=== PATIENT | male | born 1940 | race Caucasian/White ===

== ENCOUNTER 2022-05-13 15:36 | Emergency (ER) | payer OTHER ==
--- NOTE | 2022-05-13 17:25 | RAD REPORT ---
EXAM DESCRIPTION: RAD - Chest Single View - 05/13/2022 5:14 pm CLINICAL HISTORY: COUGH, congestion, shortness of breath, abnormal EKG COMPARISON: Two view chest 12/30/2019 TECHNIQUE: AP portable chest image was obtained 05/13/2022 5:14 pm . FINDINGS: Lung volumes are decreased compared to the prior study. This accentuates an existing inter stitial fibrotic lung pattern. No consolidation or mass seen. A mild interstitial edema or infiltrate could be masked. No hilar abnormality compared to prior imaging. Heart and vasculature are normal. No measurable pleur al effusion and no pneumothorax. No acute bony abnormality seen. No acute aortic findings suspected. IMPRESSION: Chronic interstitial lung disease is present potentially masking a mild interstitial [place] or infiltrate.
[2022-05-13 17:28] LABS: Absolute Lymphocytes (CBC) 0.7 K/uL (0.7-4.9); Hematocrit 36.7 % (39.6-49.0); Lymphocytes % 12.8 % (15.3-44.8); MCV 89.1 fL (80-100); MPV 8.6 fL (7.6-11.3); Potassium 3.5 mmol/L (3.5-5.1); RBC Red Blood Cell Count 4.12 M/uL (4.33-5.43); Troponin High Sensitivity 4.9 pg/mL (<58.9)
--- NOTE | 2022-05-13 18:18 | ER ---
Nurse's Notes [facility] Name: Cabrera Valdez Age: 81 yrs Sex: Male : 1940 Arrival Date: 05/13/2022 Time: 15:41 Bed 20 Private MD: Dm Hager Diagnosis: SARS-associated coronavirus as the cause of diseases classified elsewhere Presentation: 05/13 16:20 Chief complaint: Patient states: I went to the urgent care because I was SOB, coughing, em6 congestion in the morning and dizziness in the morning. The urgent care sent me to the ER because my EKG came abnormal. My throat has been hurting. No chest pain, N/v, REARDON nor pain. Coronavirus screen: Client denies travel out of the [place] in the last 14 days. Ebola Screen: Patient negative for fever greater than or equal to 101.5 degrees Fahrenheit, and additional compatible Ebola Virus Disease symptoms. Initial Sepsis Screen: Does the patient meet any 2 criteria? No. Patient's initial sepsis screen is negative. Does the patient have a suspected source of infection? No. Patient's initial sepsis screen is negative. Risk Assessment: Do you want to hurt yourself or someone else? Patient reports no desire to harm self or others. Onset of symptoms was May 12, 2022. 16:20 Method Of Arrival: Ambulatory em6 16:20 Acuity: FELICITY 3 em6 Triage Assessment: 16:24 General: Appears in no apparent distress. comfortable, Behavior is calm, cooperative. em6 Respiratory: Reports shortness of breath at rest Onset: The symptoms/episode began/occurred yesterday, the patient has mild shortness of breath. Historical: - Allergies: 16:25 No Known Allergies; em6 - Home Meds: 16:25 Crestor 10 mg oral tab [Active]; em6 - PMHx: 16:25 None; em6 - Immunization history:: Adult Immunizations up to date. - Social history:: Smoking status: unknown. Screenin:23 Abuse screen: Denies threats or abuse. Nutritional screening: No deficits noted. em6 Tuberculosis screening: No symptoms or risk factors identified. 17:03 Fall Risk IV access (20 points). Total Campos Fall Scale indicates No Risk (0-24 pts). em6 Assessment: 16:24 Pain: Denies pain. Neuro: Bueno Agitation-Sedation Scale (RASS): 0 - Alert and Calm. em6 Cardiovascular: Rhythm is sinus rhythm. Respiratory: Airway is patent Respiratory effort is even, unlabored, Breath sounds are clear bilaterally. 16:24 General: Appears in no apparent distress. comfortable, Behavior is calm, cooperative. em6 16:24 GI: No signs and/or symptoms were reported involving the gastrointestinal system. : em6 No signs and/or symptoms were reported regarding the genitourinary system. EENT: Reports nasal congestion since 05/13/22. 16:24 General:. Derm: No signs and/or symptoms reported regarding the dermatologic system. em6 Musculoskeletal: Circulation, motion, and sensation intact. Range of motion: intact in all extremities. 17:30 Reassessment: Patient appears in no apparent distress at this time. No changes from em6 previously documented assessment. Patient and/or family updated on plan of care and expected duration. Pain level reassessed. Patient is alert, oriented x 3, equal unlabored respirations, skin warm/dry/pink. 18:37 Reassessment: Patient appears in no apparent distress at this time. Patient and/or em6 family updated on plan of care and expected duration. Pain level reassessed. Patient is alert, oriented x 3, equal unlabored respirations, skin warm/dry/pink. Vital Signs: 16:20 BP 106 / 50; Pulse 79; Resp 21; Temp 98.6; Pulse Ox 96% on R/A; Weight 83.91 kg; Height em6 5 ft. 8 in. (172.72 cm); Pain 0/10; 17:30 BP 118 / 55; Pulse 88; Resp 20; Pulse Ox 96% on R/A; em6 18:38 BP 103 / 65; Pulse 88; Resp 20; Pulse Ox 96% ; em6 16:20 Body Mass Index 28.13 (83.91 kg, 172.72 cm) em6 ED Course: 15:41 Patient arrived in ED. rg4 15:41 Von Hager MD is Private Physician. rg4 15:41 Dm Hager MD is Private Physician. rg4 16:17 Alex Matamoros is [facility]. jl9 16:17 Alan Bai MD is Attending Physician. jl9 16:23 Triage completed. em6 16:25 Arm band placed on. em6 16:27 Patient has correct armband on for positive identification. Bed in low position. Call em6 light in reach. Side rails up X 1. 17:00 SARS-COV-2 RT PCR (Document "Date of Onset" if Symptomatic) Sent. em6 17:00 Influenza Screen (A Sent. em6 17:00 Influenza Screen (a \\T\\ B) Sent. em6 17:04 Inserted saline lock: 22 gauge in right antecubital area, using aseptic technique. em6 Blood collected. 17:16 XRAY Chest (1 view) In Process Unspecified. EDMS 17:46 Influenza Screen (a \\T\\ B) Sent. zm 18:39 No provider procedures requiring assistance completed. IV discontinued, intact, em6 bleeding controlled, No redness/swelling at site. Pressure dressing applied. Administered Medications: No medications were administered Medication: 16:27 VIS not applicable for this client. em6 Outcome: 18:18 Discharge ordered by . duglas 18:40 Discharged to home ambulatory, with significant other. em6 18:40 Condition: stable 18:40 Discharge instructions given to patient, significant other, Instructed on discharge instructions, follow up and referral plans. medication usage, Demonstrated understanding of instructions, follow-up care, medications, Prescriptions given X 1. 18:41 Patient left the ED. em6 Signatures: Dispatcher [employer] Leyla Bailey4 Gallito, Criss Matamoros, Alex nance9 Emily Conti, RN RN em6 Corrections: (The following items were deleted from the chart) 17:01 16:24 Pain: Denies pain. em6 em6 17:03 16:24 Respiratory: Airway em6 em6 17:03 16:24 Respiratory: Airway is patent Respiratory effort is even, unlabored, Breath em6 sounds are clear bilaterally. em6 17:03 16:24 General: Appears in no apparent distress. em6 em6
--- NOTE | 2022-05-13 18:18 | EDPHYS ---
Physician Documentation [facility] Name: Cabrera Valdez Age: 81 yrs Sex: Male : 1940 Arrival Date: 05/13/2022 Time: 15:41 Bed 20 Private MD: Dm Hager ED Physician Alan Bai HPI: 05/13 18:15 This 81 yrs old Male presents to ER via Ambulatory with complaints of jl9 Shortness Of Breath.. 18:15 The patient has shortness of breath during heavy activity. Onset: The symptoms/episode jl9 began/occurred this morning. Duration: The symptoms are intermittent. The patient's shortness of breath is aggravated by nothing, is alleviated by nothing. Associated signs and symptoms: Pertinent positives: fever. Historical: - Allergies: 16:25 No Known Allergies; em6 - Home Meds: 16:25 Crestor 10 mg oral tab [Active]; em6 - PMHx: 16:25 None; em6 - Immunization history:: Adult Immunizations up to date. - Social history:: Smoking status: unknown. ROS: 18:16 Eyes: Negative for injury, pain, redness, and discharge, ENT: Negative for injury, jl9 pain, and discharge, Neck: Negative for injury, pain, and swelling, Cardiovascular: Negative for chest pain, palpitations, and edema. 18:16 Abdomen/GI: Negative for abdominal pain, nausea, vomiting, diarrhea, and constipation, Back: Negative for injury and pain, : Negative for injury, bleeding, discharge, and swelling, MS/Extremity: Negative for injury and deformity, Skin: Negative for injury, rash, and discoloration, Neuro: Negative for headache, weakness, numbness, tingling, and seizure, Psych: Negative for depression, anxiety, suicide ideation, homicidal ideation, and hallucinations, Allergy/Immunology: Negative for hives, rash, and allergies, Endocrine: Negative for neck swelling, polydipsia, polyuria, polyphagia, and marked weight changes, Hematologic/Lymphatic: Negative for swollen nodes, abnormal bleeding, and unusual bruising. 18:16 Constitutional: Positive for fatigue, fever. 18:16 Respiratory: Positive for shortness of breath. Exam: 18:16 Constitutional: This is a well developed, well nourished patient who is awake, alert, jl9 and in no acute distress. Head/Face: Normocephalic, atraumatic. Eyes: Pupils equal round and reactive to light, extra-ocular motions intact. Lids and lashes normal. Conjunctiva and sclera are non-icteric and not injected. Cornea within normal limits. Periorbital areas with no swelling, redness, or edema. ENT: Mucous membranes moist. Neck: Trachea midline, no thyromegaly or masses palpated, and no cervical lymphadenopathy. Supple, full range of motion without nuchal rigidity, or vertebral point tenderness. No Meningismus. Chest/axilla: Normal chest wall appearance and motion. Nontender with no deformity. No lesions are appreciated. Cardiovascular: Regular rate and rhythm with a normal S1 and S2. No gallops, murmurs, or rubs. Normal PMI, no JVD. No pulse deficits. Respiratory: Lungs have equal breath sounds bilaterally, clear to auscultation and percussion. No rales, rhonchi or wheezes noted. No increased work of breathing, no retractions or nasal flaring. Abdomen/GI: Soft, non-tender, with normal bowel sounds. No distension or tympany. No guarding or rebound. No evidence of tenderness throughout. Back: No spinal tenderness. No costovertebral tenderness. Full range of motion. Skin: Warm, dry with normal turgor. Normal color with no rashes, no lesions, and no evidence of cellulitis. MS/ Extremity: Pulses equal, no cyanosis. Neurovascular intact. Full, normal range of motion. Neuro: Awake and alert, GCS 15, oriented to person, place, time, and situation. Cranial nerves II-XII grossly intact. Motor strength 5/5 in all extremities. Sensory grossly intact. Cerebellar exam normal. Normal gait. Psych: Awake, alert, with orientation to person, place and time. Behavior, mood, and affect are within normal limits. Vital Signs: 16:20 BP 106 / 50; Pulse 79; Resp 21; Temp 98.6; Pulse Ox 96% on R/A; Weight 83.91 kg; Height em6 5 ft. 8 in. (172.72 cm); Pain 0/10; 17:30 BP 118 / 55; Pulse 88; Resp 20; Pulse Ox 96% on R/A; em6 18:38 BP 103 / 65; Pulse 88; Resp 20; Pulse Ox 96% ; em6 16:20 Body Mass Index 28.13 (83.91 kg, 172.72 cm) em6 MDM: 16:18 Patient medically screened. [facility] 18:17 Data reviewed: vital signs, nurses notes. Counseling: I had a detailed discussion with duglas the patient and/or guardian regarding: the historical points, exam findings, and any diagnostic results supporting the discharge/admit diagnosis, lab results, the need for outpatient follow up, to return to the emergency department if symptoms worsen or persist or if there are any questions or concerns that arise at home. 05/13 16:22 Order name: Basic Metabolic Panel; Complete Time: 17:34 [facility] 05/13 16:22 Order name: CBC with Diff; Complete Time: 18:10 [facility] 05/13 16:22 Order name: Troponin HS; Complete Time: 17:34 [facility] 05/13 16:22 Order name: Influenza Screen (a \\T\\ B); Complete Time: 18:10 [facility] 05/13 16:24 Order name: Influenza Screen (A ; Complete Time: 18:10 [facility] 05/13 16:22 Order name: XRAY Chest (1 view); Complete Time: 17:34 [facility] 05/13 16:22 Order name: EKG; Complete Time: 16:22 [facility] 05/13 16:22 Order name: Cardiac monitoring; Complete Time: 17:00 [facility] 05/13 16:22 Order name: EKG - Nurse/Tech; Complete Time: 16:27 [facility] 05/13 16:22 Order name: IV Saline Lock; Complete Time: 17:01 [facility] 05/13 16:22 Order name: Labs collected and sent; Complete Time: 17:01 [facility] 05/13 16:22 Order name: O2 Per Protocol; Complete Time: 16:27 [facility] 05/13 16:24 Order name: SARS-COV-2 RT PCR (Document "Date of Onset" if Symptomatic) [facility] 05/13 16:22 Order name: O2 Sat Monitoring; Complete Time: 16:27 [facility] Administered Medications: No medications were administered Disposition Summary: 05/13/22 18:18 Discharge Ordered Location: Home 9 Condition: Stable 9 Diagnosis - SARS-associated coronavirus as the cause of diseases classified elsewhere 9 Followup: jl9 - With: Private Physician - When: 1 - 2 days - Reason: Recheck today's complaints, Continuance of care, Re-evaluation by your physician Discharge Instructions: - Discharge Summary Sheet jl9 - COVID-19 jl9 Forms: - Medication Reconciliation Form jl9 - Thank You Letter jl9 - Antibiotic Education jl9 - Prescription Opioid Use jl9 Prescriptions: - Paxlovid (EUA) 150 mg x 2- 100 mg Oral tablet - take 3 tablet by ORAL route 2 times per day for 5 days per package directions; jl9 30 tablet; Refills: 0, Product Selection Permitted Signatures: Dispatcher [employer] Alex Strauss jl9 Emily Conti, RN RN em6
[2022-05-13 19:22] VITALS: TEMP 98.6; O2SAT 96
[2022-05-13 19:36] VITALS: BP 103/65
--- NOTE | 2022-05-14 15:20 | EKG ---
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
== END 2022-05-13 18:41 | disposition home or self-care (01) ==
LOC: ER 15:36
DX: U07.1 COVID-19 (principal)
CPT/HCPCS: 93005; 85025; 80048; 36415; 84484; 87804 ×2; 71045; 99284; U0003

== ENCOUNTER 2023-06-28 16:45 | Emergency (ER) | payer OTHER ==
[2023-06-28 17:17] LABS: Lymphocytes % 28.7 % (15.3-44.8); MCV 89.4 fL (80-100); MPV 8.2 fL (7.6-11.3); Platelets 209 thou/uL (152-406); RBC Red Blood Cell Count 4.14 M/uL (4.33-5.43)
[2023-06-28] MEDS ORDERED: NA CHLORIDE 0.9% 500 ML ONE (17:18)
[2023-06-28 17:37] LABS: Albumin 3.9 g/dL (3.4-5.0); Bilirubin Total 0.4 mg/dL (0.2-1.0); Potassium 3.9 mEq/L (3.5-5.1); Protein, Total 7.9 g/dL (6.4-8.2)
--- NOTE | 2023-06-28 20:00 | RAD REPORT ---
EXAM DESCRIPTION: CTAbdomen Pelvis W Contrast - 06/28/2023 7:48 pm CLINICAL HISTORY: Abdominal pain. Abd pain;Constipation COMPARISON: No comparisons TECHNIQUE: Biphasic CT imaging of the abdomen and pelvis was performed with 100 ml non-ionic IV cont rast. All CT scans are performed using dose optimization technique as appropriate and may include automated exposure control or mA/KV adjustment according to patient size. FINDINGS: Mildly emphysematous lung bases.Small hiatal hernia noted. The liver, spleen, pancreas, adrenal glands and kidneys are within normal limits. There is a very large amount of stool retained in the colon to the level of the mid sigmoid colon. Mi ld twisting of the mesentery at the level of the sigmoid colon lower abdomen noted likely indicating sigmoid volvulus. No free intraperitoneal air. Nonvisualization of the appendix. No evidence of sign ificant lymphadenopathy. No suspicious bony findings. IMPRESSION: Findings most compatible with sigmoid volvulus. Quite significant fecal retention in the colon.
[2023-06-28] MEDS ORDERED: NA CHLORIDE 0.9% 1,000 ML ONE (21:34)
--- NOTE | 2023-06-28 21:36 | EDPHYS ---
Physician Documentation [facility] Name: Cabrera Valdez Age: 82 yrs Sex: Male : 1940 Arrival Date: 06/28/2023 Time: 16:45 Bed 13 Private MD: Von Hager C ED Physician Taurus Pathak HPI: 06/28 17:51 This 82 yrs old Male presents to ER via Ambulatory with complaints of Constipation. kb 17:51 The patient presents with abdominal pain. Onset: The symptoms/episode began/occurred 1 kb week(s) ago, and became worse today. The symptoms do not radiate. Associated signs and symptoms: Pertinent positives: constipation, Pertinent negatives: nausea, vomiting, and diarrhea, fever. The symptoms are described as constant. Modifying factors: The symptoms are alleviated by nothing, the symptoms are aggravated by nothing. Severity of pain: At its worst the pain was moderate in the emergency department the pain is unchanged. The patient has not experienced similar symptoms in the past. The patient has not recently seen a physician. Pt reports constipation for 1 weeks, abd pain started today. Historical: - Allergies: 16:56 No Known Allergies; ap3 - PMHx: 16:56 Hypothyroidism; Hypercholesterolemia; ap3 - Immunization history:: Client reports receiving the 2nd dose of the Covid vaccine, Flu vaccine is up to date. - Social history:: Smoking status: Patient/guardian denies using tobacco, the patient reports quitting approximately 10 years ago. ROS: 17:50 Constitutional: Negative for fever, chills, and weight loss, kb 17:50 Abdomen/GI: Positive for abdominal pain, constipation, Negative for nausea, vomiting, and diarrhea, 17:50 All other systems are negative, Exam: 17:51 Constitutional: This is a well developed, well nourished patient who is awake, alert, kb and in no acute distress. Head/Face: Normocephalic, atraumatic. ENT: Moist Mucous membranes Cardiovascular: Regular rate Respiratory: Respirations even and unlabored. No increased work of breathing. Talking in full sentences Skin: Warm, dry with normal turgor. Normal color. MS/ Extremity: Pulses equal, no cyanosis. Neurovascular intact. Full, normal range of motion. Neuro: Awake and alert, GCS 15, oriented to person, place, time, and situation. Moves all extremities. Normal gait. 17:51 Abdomen/GI: Inspection: abdomen appears normal, Bowel sounds: normal, Palpation: soft, in all quadrants, mild abdominal tenderness, in all quadrants, Vital Signs: 16:54 BP 145 / 83; Pulse 80; Resp 18; Temp 97.5; Pulse Ox 96% ; Weight 83.91 kg; Pain 0/10; ap3 17:00 BP 126 / 78; Pulse 74; Resp 16; Pulse Ox 96% on R/A; db 18:00 BP 123 / 68; Pulse 64; Resp 16; Pulse Ox 95% on R/A; db 19:25 BP 138 / 72; Pulse 66; Resp 16 S; Pulse Ox 95% on R/A; ha1 20:10 BP 138 / 74; Pulse 77; Resp 18 S; Pulse Ox 95% on R/A; ha1 21:20 BP 133 / 72; Pulse 75; Resp 16 S; Pulse Ox 96% on R/A; ha1 16:54 Pain Scale: Adult ap3 MDM: 16:47 Patient medically screened. kb 17:51 Data reviewed: vital signs, nurses notes. kb 17:52 Differential diagnosis: bowel obstruction, diverticulitis, non-specific abd pain, kb constipation. 20:22 Consideration of Admission/Observation Escalation of care including kb admission/observation considered. 20:25 Management of patient was discussed with the following: Fitness Club Manager: Dr Oj elizabeth recommends transfer. 20:56 Management of patient was discussed with the following: Dr Martinez, surgeon at [facility]. Accepts pt for consult.. 21:17 Counseling: I had a detailed discussion with the patient and/or guardian regarding the historical points, exam findings, and any diagnostic results supporting the discharge/admit diagnosis, lab results, radiology results, the need to transfer to another facility. 21:18 Management of patient was discussed with the following: Fitness Club Manager: Dr Jade elizabeth recommends consulting Dr Mcwilliams for conservative treatment with colonoscopy and attempt transfer if needed. Dr Hansen is willing to consult on pt if Dr Mcwilliams declines and unable to transfer.. 21:33 Management of patient was discussed with the following: Dr Lobo, hospitalist at [facility] accepts pt for transfer. 06/28 16:52 Order name: CBC with Diff; Complete Time: 17:21 kb 06/28 16:52 Order name: CMP; Complete Time: 17:39 kb 06/28 16:52 Order name: Lipase; Complete Time: 17:39 kb 06/28 21:14 Order name: Lactate w/ 2H reflex if indic. kb 06/28 16:52 Order name: CT Abd/Pelvis - PO and IV Contrast; Complete Time: 20:14 kb 06/28 16:52 Order name: IV Saline Lock; Complete Time: 17:01 kb 06/28 16:52 Order name: Labs collected and sent; Complete Time: 17:01 kb Administered Medications: 17:05 Drug: NS 0.9% IV 500 ml IV at bolus once Route: IV; Rate: bolus; Site: right db antecubital; 22:20 Follow up: Response: No adverse reaction; IV Status: Completed infusion; IV Intake: ha1 500ml 21:20 Drug: NS 0.9% IV 1000 ml IV at 75 ml/hr continuous Route: IV; Rate: 75 ml/hr; Site: kl left antecubital; 22:20 Follow up: Response: No adverse reaction; IV Status: Infusion continued ha1 Disposition: 16:55 I was immediately available on-site in the Emergency Department for consultation in the ms3 care of the patient. 17:56 Co-signature as Attending Physician, Taurus Pathak DO. ms3 Disposition Summary: 06/28/23 21:36 Transfer Ordered Notes: Transfer Location: [facility] kb Reason: Higher level of care kb Condition: Stable kb Problem: new kb Symptoms: are unchanged kb Accepting Physician: Dr Lobo(06/28/23 22:21) ha1 Diagnosis - Sigmoid Volvulus kb Discharge Instructions: - Discharge Summary Sheet rv1 Forms: - Medication Reconciliation Form kb - SBAR form rv1 Signatures: Dispatcher [employer] EDMS Amber Alicea, COMMISSION AUDITOR-C COMMISSION AUDITOR-Nannette Montenegro RN Hannah Mauro RN RN ap3 Sims, Marcus, DO DO ms3 Sunita Cat RN RN ha1 Maren Joseph RN RN db Corrections: (The following items were deleted from the chart) 17:51 17:50 Constitutional: This is a well developed, well nourished patient who is awake, kb alert, and in no acute distress. Head/Face: Normocephalic, atraumatic. ENT: Moist Mucous membranes Cardiovascular: Regular rate Respiratory: Respirations even and unlabored. No increased work of breathing. Talking in full sentences Skin: Warm, dry with normal turgor. Normal color. Neuro: Awake and alert, GCS 15, oriented to person, place, time, and situation. Moves all extremities. Normal gait. kb 17:51 17:50 Musculoskeletal/extremity: Extremities: grossly normal except: noted in the kb abdomen: decreased ROM, pain, swelling, tenderness, ROM: limited active range of motion due to pain, Circulation is intact in all extremities. Sensation intact. kb 21:33 20:22 Management of patient was discussed with the following: Fitness Club Manager: Dr Jade elizabeth recommends consulting [facility] and attempt transfer to colorectal surgery. kb 22:21 21:36 Dr Yamil elizabeth ha1
--- NOTE | 2023-06-28 21:36 | ER ---
Nurse's Notes [facility] Name: Cabrera Valdez Age: 82 yrs Sex: Male : 1940 Arrival Date: 06/28/2023 Time: 16:45 Bed 13 Private MD: Von Hager C Diagnosis: Sigmoid Volvulus Presentation: 06/28 16:54 Chief complaint: Patient states: he has not had a bowel movement in approx one week. ap3 patient reports he has tried to have a bowel movement by using an enema, laxatives and suppositories over this time period with no relief. Coronavirus screen: At this time, the client does not indicate any symptoms associated with coronavirus-19. Ebola Screen: No symptoms or risks identified at this time. Initial Sepsis Screen: Does the patient meet any 2 criteria? No. Patient's initial sepsis screen is negative. Does the patient have a suspected source of infection? No. Patient's initial sepsis screen is negative. Risk Assessment: Do you want to hurt yourself or someone else? Patient reports no desire to harm self or others. Onset of symptoms was June 21, 2023. 16:54 Method Of Arrival: Ambulatory ap3 16:54 Acuity: FELICITY 3 ap3 Triage Assessment: 16:56 General: Appears uncomfortable, Behavior is calm, cooperative, appropriate for age. ap3 Pain: Complains of pain in suprapubic area, right lower quadrant and left lower quadrant Pain currently is 0 out of 10 on a pain scale. at worst was 10 out of 10 on a pain scale. Is intermittent. Neuro: Level of Consciousness is awake, alert, obeys commands, Oriented to person, place, time, situation, Appropriate for age. Cardiovascular: Patient's skin is warm and dry. Respiratory: Airway is patent Respiratory effort is even, unlabored, Respiratory pattern is regular, symmetrical. GI: Reports lower abdominal pain, constipation. Historical: - Allergies: 16:56 No Known Allergies; ap3 - PMHx: 16:56 Hypothyroidism; Hypercholesterolemia; ap3 - Immunization history:: Client reports receiving the 2nd dose of the Covid vaccine, Flu vaccine is up to date. - Social history:: Smoking status: Patient/guardian denies using tobacco, the patient reports quitting approximately 10 years ago. Screenin:57 [facility] ED Fall Risk Assessment (Adult) History of falling in the last 3 months, ap3 including since admission No falls in past 3 months (0 pts). Abuse screen: Denies threats or abuse. Nutritional screening: No deficits noted. Tuberculosis screening: No symptoms or risk factors identified. Assessment: 17:05 Reassessment: Patient appears in no apparent distress at this time. Patient and/or db family updated on plan of care and expected duration. Pain level reassessed. Patient is alert, oriented x 3, equal unlabored respirations, skin warm/dry/pink. CONSTIPATION X 1 WEEK. TOOK LAXITIVE 1 HOUR AGO. General: Appears in no apparent distress. comfortable, Behavior is calm, cooperative. Pain: Complains of pain in abdomen and left lower quadrant and right lower quadrant. Neuro: Level of Consciousness is awake, alert, obeys commands, Oriented to person, place, time, situation. Respiratory: Airway is patent Respiratory effort is even, unlabored, Respiratory pattern is regular, symmetrical. GI: Bowel sounds present X 4 quads. Abd is soft and non tender X 4 quads. Reports lower abdominal pain, constipation. 17:10 Reassessment: PT STARTED DRINKING CT PO CONTRAST. db 18:00 Reassessment: Patient appears in no apparent distress at this time. Patient and/or db family updated on plan of care and expected duration. Pain level reassessed. Patient is alert, oriented x 3, equal unlabored respirations, skin warm/dry/pink. 19:25 General: Appears comfortable, Behavior is calm, cooperative. Pain: Denies pain. Neuro: ha1 Level of Consciousness is awake, alert, obeys commands, Oriented to person, place, time, situation. Cardiovascular: Capillary refill < 3 seconds Patient's skin is warm and dry. Respiratory: Airway is patent Respiratory effort is even, unlabored, Respiratory pattern is regular, symmetrical. GI: Abdomen is round non-distended, Bowel sounds present X 4 quads. Reports constipation. Derm: Skin is pink, warm \T\ dry. Musculoskeletal: Circulation, motion, and sensation intact. Range of motion: intact in all extremities. 20:25 Reassessment: Patient and/or family updated on plan of care and expected duration. Pain ha1 level reassessed. Patient is alert, oriented x 3, equal unlabored respirations, skin warm/dry/pink. 21:25 Reassessment: Patient and/or family updated on plan of care and expected duration. Pain ha1 level reassessed. Patient is alert, oriented x 3, equal unlabored respirations, skin warm/dry/pink. 22:18 Reassessment: Patient and/or family updated on plan of care and expected duration. Pain ha1 level reassessed. Patient is alert, oriented x 3, equal unlabored respirations, skin warm/dry/pink. EMS in the room Patient denies pain at this time. Vital Signs: 16:54 BP 145 / 83; Pulse 80; Resp 18; Temp 97.5; Pulse Ox 96% ; Weight 83.91 kg; Pain 0/10; ap3 17:00 BP 126 / 78; Pulse 74; Resp 16; Pulse Ox 96% on R/A; db 18:00 BP 123 / 68; Pulse 64; Resp 16; Pulse Ox 95% on R/A; db 19:25 BP 138 / 72; Pulse 66; Resp 16 S; Pulse Ox 95% on R/A; ha1 20:10 BP 138 / 74; Pulse 77; Resp 18 S; Pulse Ox 95% on R/A; ha1 21:20 BP 133 / 72; Pulse 75; Resp 16 S; Pulse Ox 96% on R/A; ha1 16:54 Pain Scale: Adult ap3 ED Course: 16:46 Patient arrived in ED. rg4 16:46 Von Hager MD is Private Physician. rg4 16:47 [facility] kb 16:47 Taurus Pathak DO is Attending Physician. kb 16:55 Triage completed. ap3 16:57 Arm band placed on right wrist. ap3 16:57 Patient has correct armband on for positive identification. Bed in low position. Call ap3 light in reach. Side rails up X 1. Adult w/ patient. Pulse ox on. NIBP on. 17:02 CBC with Diff Sent. bc6 17:02 CMP Sent. bc6 17:02 Lipase Sent. bc6 17:02 Inserted saline lock: 20 gauge in right forearm, using aseptic technique. Blood bc6 collected. 17:11 Maren Joseph, RN is Primary Nurse. db 19:50 CT Abd/Pelvis - PO and IV Contrast In Process Unspecified. EDMS 20:26 Initiated transfer with Maxi at [facility]. rv1 20:38 Doc to Doc with GI at [facility]. rv1 21:09 Doc to Doc with Hospitalist at [facility]. rv1 21:[address] Kellogg to [facility] to Rm [id number]. rv1 21:49 Called [place] with EMS for transfer truck, given 10-15 min ETA. rv1 21:56 No provider procedures requiring assistance completed. Patient transferred, IV remains kl in place. 22:19 Provided Education on: need for transfer . ha1 Administered Medications: 17:05 Drug: NS 0.9% IV 500 ml IV at bolus once Route: IV; Rate: bolus; Site: right db antecubital; 22:20 Follow up: Response: No adverse reaction; IV Status: Completed infusion; IV Intake: ha1 500ml 21:20 Drug: NS 0.9% IV 1000 ml IV at 75 ml/hr continuous Route: IV; Rate: 75 ml/hr; Site: kl left antecubital; 22:20 Follow up: Response: No adverse reaction; IV Status: Infusion continued ha1 Medication: 22:19 VIS not applicable for this client. ha1 Intake: 22:20 IV: 500ml; Total: 500ml. ha1 Outcome: 21:36 ER care complete, transfer ordered by MD. elizabeth 21:55 Transferred by [facility] to [facility] 21:55 Condition: stable 21:55 Discharge instructions given to patient, family, Instructed on the need for transfer, Demonstrated understanding of instructions, 22:21 Patient left the ED. ha1 Signatures: Dispatcher [employer] EDAmber Artis, SUPERVISOR CEREAL-C SUPERVISOR CEREAL-Nannette Montenegro RN RN kl Garcia, Rubi rg4 Hannah Aguilar RN RN ap3 Sunita Cat RN RN ha1 Maren Joseph RN RN Agnes North rv1 Rin Matos 6 Corrections: (The following items were deleted from the chart) 19:20 16:54 BP 145 / 83; Pulse 80bpm; Resp 18bpm; Pulse Ox 96%; Temp 87.5F; 83.91 kg; Pain ap3 0/10, Adult; ap3
[2023-06-28 22:31] VITALS: TEMP 97.5
[2023-06-28 22:53] VITALS: BP 133/72; O2SAT 96
== END 2023-06-28 22:21 | disposition short-term general hospital (02) ==
LOC: ER 16:45
DX: K56.2 Volvulus (principal); K59.00 Constipation, unspecified
CPT/HCPCS: 85025; 36415; 83605; 83690; 80053; 74177; Q9967; J7040; J7030